=== PATIENT | male | born 1965 | race Caucasian/White ===

== ENCOUNTER 2017-12-22 10:49 | Day surgery (SDC) | payer OTHER, MEDICAID ==
[2017-12-22] MEDS ORDERED: LR 1,000 ML IV ONE (11:39)
--- NOTE | 2017-12-22 11:59 | PDGENHP ---
History & Physical Chief Complaint: blood in stools History of Present Illness: sees BRBPR, no fhx cc Pertinent Past, Social, Family History: no fhcc or polyps. no tob, no alcohol Relevant Physical Exam: a+ox3. CTA. S1S2. +BS, soft nt Cardiorespiratory Assessment: class 2
[2017-12-22] MEDS ORDERED: PROPOFOL/EMULSION 500 MG/50 ML BOTTLE IV ONE (12:00)
[2017-12-22] MEDS ORDERED: PROPOFOL 200 MG/20 ML VIAL ONE (12:01)
[2017-12-22] MEDS ORDERED: LIDOCAINE 2% 5 ML SDV ONE (12:01)
[2017-12-22] MEDS ORDERED: ACETAMINOPHEN 500 MG TAB PO PRN (12:15)
[2017-12-22] MEDS ORDERED: ONDANSETRON 4 MG/2 ML VIAL IVP PRN (12:15)
[2017-12-22] MEDS ORDERED: NALOXONE HCL 0.4 MG/ML INJ IVP PRN (12:15)
--- NOTE | 2017-12-22 12:18 | PDANEPAE ---
ANE History of Present Illness Colonoscopy ANE Past Medical History - Cardiovascular History Hx Hypertension: No Hx Arrhythmias: No Hx Chest Pain: No Hx Coronary Artery / Peripheral Vascular Disease: No Hx CHF / Valvular Disease: No Hx Palpitations: No - Pulmonary History Hx COPD: No Hx Asthma/Reactive Airway Disease: No Hx Recent Upper Respiratory Infection: No Hx Oxygen in Use at Home: No Hx Sleep Apnea: No Pulmonary History Comment: Smokes marijuana couple times a week - Neurologic History Hx Cerebrovascular Accident: No Hx Seizures: No Hx Dementia: No - Endocrine History Hx Diabetes: No - Renal History Hx Renal Disorders: No - Liver History Hx Hepatic Disorders: No - Neurological & Psychiatric Hx Hx Neurological and Psychiatric Disorders: Yes Neurological / Psychiatric History Comment: Bipolar - Cancer History Hx Cancer: No - Congenital Disorder History Hx Congenital Disorders: No - GI History Hx Gastrointestinal Disorders: No - Surgical History Prior Surgeries: none ANE Review of Systems Review of Systems: - Exercise capacity METS (RN): 5 METS ANE Patient History - Allergies Allergies/Adverse Reactions: No Known Allergies Allergy (Verified 03/21/15 12:50) - Home Medications Home Medications: TEGretol 400 mg BID 08/24/09 [Last Taken 12/21/17 21:30] AMITRIPTYLINE HCL 50 mg DAILY 06/20/10 [Last Taken 12/21/17 21:30] Rozerem 8 mg DAILY 12/22/17 [Last Taken 12/21/17 21:30] Seroquel 400 mg BID 12/22/17 [Last Taken 12/21/17 21:30] Temazepam 30 mg DAILY 12/22/17 [Last Taken 12/21/17 21:30] - NPO status NPO Since - Liquids (Date): 12/21/17 NPO Since - Liquids (Time): 20:00 NPO Since - Solids (Date): 12/21/17 NPO Since - Solids (Time): 06:30 - Smoking Hx Smoking Status: Never smoked - Family Anes Hx Family Hx Anesthesia Complications: none ANE Labs/Vital Signs - Vital Signs Blood Pressure: 110/62 Heart Rate: 85 Respiratory Rate: 16 O2 Sat (%): 94 Height: 170.18 cm Weight: 86.183 kg ANE Physical Exam - Airway Neck exam: FROM Mallampati Score: Class 2 - Pulmonary Pulmonary: clear to auscultation - Cardiovascular Cardiovascular: regular rate and rhythym - ASA Status ASA Status: II ANE Anesthesia Plan Anesthesia Plan: GA with mask Total IV Anesthesia: Yes
--- NOTE | 2017-12-22 12:32 | POSTOPPROG ---
Post Op Note Date of Operation: 12/22/17 Surgeon: Chilango Burrell Anesthesiologist: Heather Anesthesia: IV Sedation (IV general) Pre-op Diagnosis: rectal bleeding Post-op Diagnosis: appy polyp, transvsers polypx2, splenic felxure polyp - large prostate, gail Indication: rectal bleeding Procedure: colon and bx Findings: 3mm appy orifice polyp, 2 transverse polyps, splenic flexure polyp. large p Inf/Abcess present in the surg proc area at time of surgery?: No EBL: Minimal (few ml from cold bx forceps) Total fluids administered: 500 ml LR Complications: none immediate
--- NOTE | 2017-12-22 12:35 | POSTANESTH ---
Post Anesthetic Evaluation Cardiovascular Status: Normal, Stable Respiratory Status: Normal, Stable Level of Consciousness/Mental Status: Alert and Oriented Pain Control: Adequate, Prn Tx Ordered Nausea/Vomiting Control: Adequate, Prn Tx Ordered Complications Possibly Related to Anesthesia: None Noted
--- NOTE | 2017-12-22 12:41 | GIREPORT ---
Formerly [facility] Surgical Services - Endoscopy Department Patient Name: Eddie Gimenez Procedure Date: 12/22/2017 12:05 PM Patient Type: Outpatient Attending MD/ ER Physician: Zach Koo Procedure: Colonoscopy Indications: Screening for colorectal malignant neoplasm Providers: Augustus Burrell MD Referring MD: Katina Acosta Medicines: Total IV Anesthesia (TIVA) = IV general Complications: No immediate complications. Estimated blood loss: Minimal. Description of Procedure: After obtaining informed consent, the scope was passed under direct vis ion. Throughout the procedure, the patient's blood pressure, pulse, and oxyg en saturations were monitored continuously. The Colonoscope with irrigatio n channel was introduced through the anus and advanced to the terminal il eum, with identification of the appendiceal orifice and IC valve. The colono scopy was performed without difficulty. The patient tolerated the procedure w ell. The quality of the bowel preparation was good. Findings: The digital rectal exam findings include prostate nodules and increased firmness of the prostate. The terminal ileum appeared normal. A 3 mm polyp was found in the appendiceal orifice. The polyp was sessil e. The polyp was removed with a piecemeal technique using a cold biopsy forceps. Resection and retrieval were complete. Estimated blood loss wa s minimal. Two sessile polyps were found in the transverse colon. The polyps were 2 to 3 mm in size. These polyps were removed with a piecemeal technique usin g a cold biopsy forceps. Resection and retrieval were complete. Estimated b lood loss was minimal. A 3 mm polyp was found in the splenic flexure. The polyp was sessile. T he polyp was removed with a piecemeal technique using a cold biopsy forcep s. Resection and retrieval were complete. Estimated blood loss was minimal . Non-bleeding hemorrhoids were found during retroflexion. The exam was otherwise without abnormality. Estimated Blood Loss: Estimated blood loss was minimal. Post Op Diagnosis: - Prostate nodules and increased firmness of the prostate found on digi cecily rectal exam. - The examined portion of the ileum was normal. - One 3 mm polyp at the appendiceal orifice, removed piecemeal using a cold biopsy forceps. Resected and retrieved. - Two 2 to 3 mm polyps in the transverse colon, removed piecemeal using a cold biopsy forceps. Resected and retrieved. - One 3 mm polyp at the splenic flexure, removed piecemeal using a cold biopsy forceps. Resected and retrieved. - Non-bleeding hemorrhoids. - The examination was otherwise normal. Recommendation: - Await pathology results. - My office will call with the pathology result with 5-7 days. If you h ave not heard from my office by 12-14, do not assume the pathology is michelle l, please call [phone] to get the pathology results. - Repeat colonoscopy in 3 years for surveillance based on pathology res ults. If only one or two polyps have cancer potential, then the interval is 5 years. If none of the polyps have cancer potential, then the interval i s 10 years - High fiber diet. - Refer to a urologist at appointment to be scheduled. YOU NEED TO GET YOUR PROSTATE EVALUATED - Patient has a contact number available for emergencies. The signs and symptoms of potential delayed complications were discussed with the pat ient. Return to normal activities tomorrow. Written discharge instructions we re provided to the patient. - Continue present medications. - Discharge patient to home (ambulatory). - Return to primary care physician as previously scheduled. - Thank you for allowing me to help in your patient's care. Do not hesi trevizo to call with any questions. Attending Participation: I personally performed the entire procedure. Indra Coffman M.D Augustus Burrell MD 12/22/2017 12:40:19 PM This report has been signed electronicallyMathew MD Indra Number of Addenda: 0 Note Initiated On: 12/22/2017 12:05 PM Total Procedure Duration Time 0 hours 17 minutes 12 seconds [email or web address]
[2017-12-22 13:12] VITALS: O2SAT 97
[2017-12-22 13:14] VITALS: TEMP 97.9
[2017-12-22 13:39] VITALS: BP 130/88; PULSE 71; RESP 12
== END 2017-12-22 13:55 | disposition home or self-care (01) ==
LOC: FSGY 10:49
PROVIDERS: ATTEND Internal Medicine Gastroenterology
PROC: 0DBJ8ZX Excision of Appendix, Via Natural or Artificial Opening Endoscopic, Diagnostic (ICD-10-PCS; principal; 2017-12-22 12:00)
PROC: 0DBL8ZX Excision of Transverse Colon, Via Natural or Artificial Opening Endoscopic, Diagnostic (ICD-10-PCS; principal; 2017-12-22 12:00)
DX: Z12.11 Encounter for screening for malignant neoplasm of colon (principal); D12.1 Benign neoplasm of appendix; D12.3 Benign neoplasm of transverse colon; K92.1 Melena; N40.2 Nodular prostate without lower urinary tract symptoms
CPT/HCPCS: J2704

== ENCOUNTER → 2018-02-10 | Outpatient (CLI) | payer OTHER | LOC: FIMAGING 09:13 | PROVIDERS: ATTEND Specialist | DX: C79.51 Secondary malignant neoplasm of bone (principal); C61 Malignant neoplasm of prostate; R97.20 Elevated prostate specific antigen [PSA] | CPT/HCPCS: 78306; A9503 ==

== ENCOUNTER → 2018-03-30 | Outpatient (CLI) | payer OTHER | LOC: FIMAGING 08:41 | PROVIDERS: ATTEND Specialist | DX: C61 Malignant neoplasm of prostate (principal); C79.51 Secondary malignant neoplasm of bone; M50.223 Other cervical disc displacement at C6-C7 level ==

== ENCOUNTER → 2018-12-03 | Outpatient (CLI) | payer OTHER | LOC: FIMAGING 17:19 | PROVIDERS: ATTEND Internal Medicine Hematology & Oncology | DX: C61 Malignant neoplasm of prostate (principal); M89.321 Hypertrophy of bone, right humerus ==